=== PATIENT | male | born 1985 | race Caucasian/White ===

== ENCOUNTER 2023-09-09 07:26 | Emergency (ER) | payer OTHER, BC ==
--- NOTE | 2023-09-09 07:31 | ERPHSYRPT ---
- History of Present Illness Time Seen by Provider: 09/09/23 07:31 Source: patient Exam Limitations: no limitations Physician History: This is an obese 38-year-old white male patient who presents with right hip and upper femur pain. He did not fall or suffer any acute traumatic injury. However, he has pain in this area when he does excessive, strenuous movement or work. As a child he had surgery in his right hip and femur area to correct the femoral head from slipping out of the joint space. He does not feel as though it slipped out of joint and he does not feel that there is a fracture he just has pain in the site that is more intense and lasting longer than other times when he has had this pain. Timing/Duration: yesterday Occured at: home Quality: aching, sharpness Hip Pain Location: hip (R) Severity of Pain-Max: moderate Severity of Pain-Current: moderate Modifying Factors: Improves With: movement Symptoms prior to fall: none Associated Symptoms: denies symptoms Allergies/Adverse Reactions: No Known Drug Allergies Allergy (Verified 09/09/23 07:50) Home Medications: Losartan Potassium [Cozaar] 100 mg PO DAILY 09/09/23 [History] Venlafaxine HCl ER 75 mg [Effexor XR 75 MG] 75 mg PO DAILY 09/09/23 [History] hydroCHLOROthiazide [Hydrochlorothiazide] 12.5 mg PO DAILY 09/09/23 [History] Travel Risk - International Travel Have you traveled outside of the country in past 3 weeks: No - Coronavirus Screening Are you exhibiting any of the following symptoms?: No Close contact with a COVID-19 positive Pt in past 14-21 Days: No - Review of Systems Constitutional: No Symptoms Eyes: No Symptoms Ears, Nose, & Throat: No Symptoms Respiratory: No Symptoms Cardiac: No Symptoms Abdominal/Gastrointestinal: No Symptoms Genitourinary Symptoms: No Symptoms Musculoskeletal: Joint Pain Skin: No Symptoms (Right hip) Neurological: No Symptoms Psychological: No Symptoms Endocrine: No Symptoms Hematologic/Lymphatic: No Symptoms Immunological/Allergic: No Symptoms All Other Systems: Reviewed and Negative - Past Medical History Pertinent Past Medical History: Yes - Past Surgical History Past Surgical History: Yes - Nursing Vital Signs Nursing Vital Signs: Initial Vital Signs Pulse Rate 91 H 09/09/23 07:34 Respiratory Rate 18 09/09/23 07:34 Blood Pressure 199/102 09/09/23 07:34 O2 Sat by Pulse Oximetry 99 09/09/23 07:34 Pain Scale Pain Intensity 4 - Physical Exam General Appearance: no apparent distress, alert, obese Eye Exam: PERRL/EOMI, eyes nml inspection Ears, Nose, Throat Exam: normal ENT inspection, moist mucous membranes Neck Exam: normal inspection, non-tender, supple, full range of motion Respiratory Exam: No chest tenderness Cardiovascular Exam: normal peripheral pulses Gastrointestinal Exam: No tenderness Rectal Exam: not done Back Exam: normal inspection, normal range of motion, No CVA tenderness, No vertebral tenderness Extremity Exam: normal inspection, normal range of motion, pelvis stable Neurologic Exam: alert, oriented x 3, cooperative, 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, normal mood/affect, nml cerebellar function, sensation nml, other (Mild limping when he ambulates favoring right side) Skin Exam: normal color, warm, dry Lymphatic Exam: No adenopathy SpO2 Interpretation: normal O2 Delivery: Room Air - Course Nursing assessment & vital signs reviewed: Yes Ordered Tests: Active Orders 24 hr Category Date Time Status LOWER EXTREMITY WO CONTRAST [CT] Stat Exams 09/09/23 07:59 Completed Medication Summary Discontinued Medications Generic Name Dose Route Start Last Admin Trade Name Mehdiq PRN Reason Stop Dose Admin Methylprednisolone Sodium 0 mg 09/09/23 08:00 09/09/23 08:04 Succinate 125 mg/ Sterile IM 09/09/23 08:01 125 mg Water 2 ml STAT ONE Administration Methylprednisolone Sodium Succinate Confirm 09/09/23 08:03 Methylprednis Sod Succ 125 Mg/2 Ml Vial Administered 09/09/23 08:04 Dose 125 mg .ROUTE .STK-MED ONE Orphenadrine Citrate 60 mg 09/09/23 08:01 09/09/23 08:08 Orphenadrine Citrate 60 Mg/2 Ml Vial IM 09/09/23 08:02 60 mg STAT ONE Administration Orphenadrine Citrate Confirm 09/09/23 08:08 Orphenadrine Citrate 60 Mg/2 Ml Vial Administered 09/09/23 08:09 Dose 60 mg .ROUTE .STK-MED ONE Oxycodone/Acetaminophen 1 tab 09/09/23 08:00 09/09/23 08:05 Oxycodone / Apap 10/325 Mg 1 Tablet PO 09/09/23 08:01 1 tab STAT STA Administration Oxycodone/Acetaminophen Confirm 09/09/23 08:03 Oxycodone / Apap 10/325 Mg 1 Tablet Administered 09/09/23 08:04 Dose 1 tab .ROUTE .STK-MED ONE Sterile Water Confirm 09/09/23 08:03 Water For Injection,Sterile 10 Ml Vial Administered 09/09/23 08:04 Dose 10 ml IJ .STK-MED ONE - Progress Progress: improved, pain not gone completely, re-examined Progress Note: 09/09/23 07:55 Patient's medical issues 1 of low complexity. Level of complexity in the work- up performed is based on review of the patient's past medical history, review of the patient's drug allergy list, review the patient's medication list, history present illness and physical findings on examination. This patient's work-up, after full discussion of the options in this patient including x-ray of the patient's right femur and right hip and pelvis, will not include laboratory studies but we will perform radiographic studies. 09/09/23 08:[address] scan of the right hip and proximal femur was interpreted by the radiologist and I reviewed the impression. Impression states there is a right hip degenerative arthropathy with intact orthopedic screws. There is no acute fracture, dislocation, suspicious bony lesions or osseous destructive process. Counseled pt/family regarding: diagnosis, need for follow-up, rad results Medical Desision Making - Independent Historian Additional History obtained from: Mother - Diagnostic Testing Diagnostic test were ordered, analyzed, and reviewed by me: Yes Radiological Interpretation: Reviewed by me, Teleradiologist Report - Risk of complications The pt has a mod risk of morbidity or mortality based on: Need for prescription drug management - Departure Departure Disposition: Home Clinical Impression: Right hip pain Condition: Stable Critical Care Time: No Referrals: LYUBOV COBB MD [Primary Care Provider] - Follow up/PCP as directed Additional Instructions: Take your medications as prescribed. Call your primary care provider and or your orthopedic surgeon to make an appointment for further evaluation management. Prescriptions: Prednisone 10 mg [Deltasone 10 mg] 10 mg PO TID #12 tablet Orphenadrine Citrate 100 mg [Norflex 100 MG Tablet] 100 mg PO BID #10 tab
[2023-09-09 07:46] VITALS: PULSE 91; RESP 18; O2SAT 99
[2023-09-09 07:49] VITALS: BP 178/94
[2023-09-09] MEDS ORDERED: solu-MEDROL 125 MG, Sterile H2O 10 ml 2 ML IM ONE ×2 (08:00)
[2023-09-09] MEDS ORDERED: OXYCODONE-ACETAMINOPHEN 10-325 PO STA (08:00)
[2023-09-09] MEDS ORDERED: Norflex 60 MG/2 ML IM ONE (08:01)
[2023-09-09] MEDS ORDERED: Sterile H2O 10 ml IJ ONE (08:03)
[2023-09-09] MEDS ORDERED: solu-MEDROL ONE (08:03)
[2023-09-09] MEDS ORDERED: OXYCODONE-ACETAMINOPHEN 10-325 ONE (08:03)
[2023-09-09] MEDS ORDERED: Norflex 60 MG/2 ML ONE (08:08)
--- NOTE | 2023-09-09 08:40 | XRAY ---
Indication: Pain. Multiple contiguous axial images obtained through the right hip. Sagittal and coronal reformatted images obtained. Comparison: None Right hip articulation intact with moderate degenerative changes as evidence by joint space narrowing, spurring, and mild bony remodeling. Intact orthopedic screw traverses femur neck/head. 5 mm and 10 mm intratrochanteric bone islands. No acute fracture, suspicious bony lesions, or osseous destructive process. Visualized noncontrasted soft tissues are unremarkable. Impression: Right hip degenerative arthropathy with intact orthopedic screw. Incidental tiny bone islands. Remaining CT right hip negative.
== END 2023-09-09 09:00 | disposition home or self-care (01) ==
LOC: ED 07:26
DX: M25.551 Pain in right hip (principal); M79.651 Pain in right thigh; Z79.52 Long term (current) use of systemic steroids; Z79.899 Other long term (current) drug therapy
CPT/HCPCS: 73700; 96372; 99283; J2360; J2930; A9270-GY